=== PATIENT | male | born 1960 | race Caucasian/White ===

== ENCOUNTER 2018-08-12 16:40 | Inpatient (IN) | payer OTHER ==
[~2018-08-12] VITALS: Ht 167.6 cm; Wt 76.7 kg
[2018-08-12] MEDS ORDERED: ACETAMINOPHEN 325MG TABLET PO STA (17:39)
[2018-08-12] MEDS ORDERED: SODIUM CHLORIDE 0.9% 1000ML BAG (SEPSIS BOLUS) IV ONE (17:45)
[2018-08-12 18:18] LABS: BASOPHILS % 0.1 % (0.0-2.0); HEMATOCRIT. 34.2 % (42.0-52.0); HEMOGLOBIN. 11.5 g/dL (14.0-18.0); LYMPHOCYTES % 7.5 % (20.0-50.0); MEAN CORPUSCULAR VOLUME 86.5 fL (80.0-94.0); MEAN PLATELET VOLUME 9.3 fl (7.4-10.4); MONOCYTES % 3.9 % (2.0-8.0); NEUTROPHILS % 88.5 % (40.0-76.0); PLATELET 221 x1000/uL (130-400); RED BLOOD CELL COUNT 3.96 mill/uL (4.7-6.1); RED CELL DISTRIBUTION WIDTH 15.5 % (11.6-14.6)
[2018-08-12 18:24] LABS: CHLORIDE 101 mEq/L (98-107)
[2018-08-12 18:25] LABS: INR 1.1; PROTHROMBIN TIME 11.4 sec (9.1-11.1)
[2018-08-12 18:29] LABS: ETHANOL BLOOD < 10 mg/dL
[2018-08-12] MEDS ORDERED: ONDANSETRON HCL 4MG/2ML INJ IV ONE (18:30)
[2018-08-12 18:32] LABS: CLARITY URINE CLOUDY (CLEAR); COLOR URINE YELLOW (YELLOW); KETONES URINE NEGATIVE (NEGATIVE); LEUKOCYTE ESTERASE URINE NEGATIVE (NEGATIVE); NITRITE URINE NEGATIVE (NEGATIVE); OCCULT BLOOD URINE 2+ (NEGATIVE); PROTEIN URINE 4+ (NEGATIVE); UROBILINOGEN URINE 0.2 E.U./dL (0.2-1.0)
[2018-08-12] MEDS ORDERED: PIPERACILLIN/TAZ 3.375G PREMIX 50 ML IV ONE (19:00)
[2018-08-12] MEDS ORDERED: VANCOMYCIN 1 G PREMIX 200 ML IV SCH (19:00)
[2018-08-12 19:01] LABS: *BARBITURATES SCREEN URINE NEGATIVE (NEGATIVE); *BENZODIAZEPINES SCREEN URINE NEGATIVE (NEGATIVE); *COCAINE SCREEN URINE NEGATIVE (NEGATIVE)
[2018-08-12 19:02] LABS: *AMPHETAMINES SCREEN URINE NEGATIVE (NEGATIVE); CANNABINOID URINE SCREEN NEGATIVE (NEGATIVE); METHADONE URINE SCREEN NEGATIVE (NEGATIVE); OPIATES URINE SCREEN NEGATIVE (NEGATIVE); PHENCYCLIDINE URINE SCREEN NEGATIVE (NEGATIVE)
[2018-08-13] VITALS (8 sets, daily range): BP systolic 148–181; BP diastolic 78–111
[2018-08-13] MEDS ORDERED: SODIUM CHLORIDE 0.45% 1,000 ML IV SCH (00:02)
[2018-08-13] MEDS ORDERED: HYDROCODONE/ACETAMINOPHEN 5/325MG TABLET PO PRN (00:15)
[2018-08-13] MEDS ORDERED: DOCUSATE SODIUM 100MG CAPSULE PO PRN (00:15)
[2018-08-13] MEDS ORDERED: ONDANSETRON HCL 4MG/2ML INJ IV PRN (00:15)
[2018-08-13] MEDS: CEFTRIAXONE 1 G PREMIX 50 ML IV SCH (04:43)
[2018-08-13] MEDS: ASPIRIN 81MG EC TABLET PO SCH (08:14)
[2018-08-13] MEDS: AMLODIPINE 10MG TABLET PO SCH (08:15)
[2018-08-13] MEDS ORDERED: SODIUM CHLORIDE 0.45% 1,000 ML IV ONE (11:45)
[2018-08-13] MEDS ORDERED: PNEUMOCOCCAL 23-VAL P-SAC VAC 0.5 ML IM ONE (12:00)
[2018-08-13] MEDS ORDERED: INFLUENZA VIRUS VACCINE(AFLURIA) 0.5ML SYR IM ONE (12:00)
[2018-08-13] MEDS ORDERED: VANCOMYCIN 500 MG PREMIX 100 ML IV NR (13:00)
[2018-08-13] MEDS: ACETAMINOPHEN 325MG TABLET PO PRN ×2 (13:38→21:14)
[2018-08-13 15:48] LABS: CHLORIDE 105 mEq/L (98-107)
[2018-08-13 15:53] LABS: HEMATOCRIT. 27.1 % (42.0-52.0); HEMOGLOBIN. 9.1 g/dL (14.0-18.0); MEAN CORPUSCULAR HEMOGLOBIN 28.7 pg (28.0-32.0); MEAN CORPUSCULAR VOLUME 85.2 fL (80.0-94.0); MEAN PLATELET VOLUME 9.4 fl (7.4-10.4); PLATELET 153 x1000/uL (130-400); RED BLOOD CELL COUNT 3.18 mill/uL (4.7-6.1); RED CELL DISTRIBUTION WIDTH 15.5 % (11.6-14.6)
[2018-08-13 16:27] LABS: PLATELET ESTIMATE NORMAL
[2018-08-13] MEDS ORDERED: DEXTROSE 50% WATER 50ML SYRINGE IV PRN (19:30)
[2018-08-13] MEDS: CLONIDINE 0.1MG TABLET PO PRN (21:14)
[2018-08-13] MEDS: INSULIN LISPRO 100 UNITS/ML SUBCUT SCH (21:15)
[2018-08-13] MEDS: BLOOD SUGAR DIAGNOSTIC STRIP TEST SCH (21:16)
[2018-08-14] VITALS: BP 122/78
[2018-08-14] MEDS: CEFTRIAXONE 1 G PREMIX 50 ML IV SCH (01:40)
[2018-08-14 04:00] VITALS: BP 148/92
[2018-08-14] MEDS: CLONIDINE 0.1MG TABLET PO PRN (05:18)
[2018-08-14 06:21] LABS: BASOPHILS % 0.2 % (0.0-2.0); EOSINOPHILS % 0.6 % (0.0-5.0); HEMATOCRIT. 25.5 % (42.0-52.0); LYMPHOCYTES % 8.3 % (20.0-50.0); MEAN PLATELET VOLUME 9.2 fl (7.4-10.4); MONOCYTES % 6.5 % (2.0-8.0); NEUTROPHILS % 84.4 % (40.0-76.0); PLATELET 139 x1000/uL (130-400); RED CELL DISTRIBUTION WIDTH 15.6 % (11.6-14.6)
[2018-08-14 06:26] LABS: CHLORIDE 108 mEq/L (98-107)
[2018-08-14] MEDS: BLOOD SUGAR DIAGNOSTIC STRIP TEST SCH ×2 (06:41→13:10)
[2018-08-14] MEDS: INSULIN LISPRO 100 UNITS/ML SUBCUT SCH ×2 (07:50→13:10)
[2018-08-14 08:00] VITALS: BP 156/95
[2018-08-14] MEDS: AMLODIPINE 10MG TABLET PO SCH (08:19)
[2018-08-14] MEDS: ASPIRIN 81MG EC TABLET PO SCH (08:19)
[2018-08-14] MEDS ORDERED: VANCOMYCIN 1 G PREMIX 200 ML IV SCH (11:00)
[2018-08-14 12:00] VITALS: BP 146/96
[2018-08-14 14:02] VITALS: BP 148/96
== END 2018-08-14 16:36 | disposition home or self-care (01) | DRG 872 ==
LOC: ER 16:40 → 6WST 21:32 → EDBEDREQ 21:36 → ENRESERV 22:47
PROVIDERS: ADMIT Hospitalist; ATTEND Hospitalist
DX: A41.9 Sepsis, unspecified organism (principal); L03.116 Cellulitis of left lower limb; N17.9 Acute kidney failure, unspecified; I16.0 Hypertensive urgency; I10 Essential (primary) hypertension; E11.9 Type 2 diabetes mellitus without complications
CPT/HCPCS: 36415; 71045; 80053; 80202; 80305; 81003; 82962; 83036; 83605; 84443; 85025; 85610; 87040; 87086; 87804; 90686; 90732; 93971; 99285; G0482; J0696; J1815; J2405; J2543; J3370; J7030

== ENCOUNTER 2018-09-22 15:08 | Inpatient (IN) | payer OTHER ==
[~2018-09-22] VITALS: Ht 167.6 cm; Wt 81.6 kg
[2018-09-22] MEDS ORDERED: PIPERACILLIN/TAZ 3.375G PREMIX 50 ML IV ONE (19:15)
[2018-09-22] MEDS ORDERED: VANCOMYCIN 1 G PREMIX 200 ML IV ONE (19:15)
[2018-09-22 19:27] LABS: BASOPHILS % 1.4 % (0.0-2.0); EOSINOPHILS % 4.5 % (0.0-5.0); HEMATOCRIT. 29.9 % (42.0-52.0); LYMPHOCYTES % 17.7 % (20.0-50.0); MEAN CORPUSCULAR HEMOGLOBIN 27.7 pg (28.0-32.0); MEAN CORPUSCULAR VOLUME 83.1 fL (80.0-94.0); MEAN PLATELET VOLUME 8.1 fl (7.4-10.4); MONOCYTES % 9.2 % (2.0-8.0); NEUTROPHILS % 67.2 % (40.0-76.0); PLATELET 315 x1000/uL (130-400); RED CELL DISTRIBUTION WIDTH 15.1 % (11.6-14.6)
[2018-09-22 19:33] LABS: PROTHROMBIN TIME 10.2 sec (9.1-11.1)
[2018-09-22 19:34] LABS: CHLORIDE 107 mEq/L (98-107)
[2018-09-22] MEDS ORDERED: ACETAMINOPHEN WITH CODEINE 300/30MG TABLET PO ONE (20:00)
[2018-09-22] MEDS ORDERED: CLONIDINE 0.1MG TABLET PO ONE (20:00)
[2018-09-22] MEDS ORDERED: HYDRALAZINE 20MG/ML VIAL IV ONE (23:15)
[2018-09-23] VITALS (8 sets, daily range): BP systolic 140–180; BP diastolic 84–100
[2018-09-23] MEDS ORDERED: DOCUSATE SODIUM 100MG CAPSULE PO PRN (00:30)
[2018-09-23] MEDS ORDERED: PIPERACILLIN/TAZ 3.375G PREMIX 50 ML IV SCH (00:30)
[2018-09-23] MEDS ORDERED: DIPHENHYDRAMINE 50MG/ML VIAL IV PRN (00:30)
[2018-09-23] MEDS ORDERED: IPRATROPIUM/ALBUTEROL 0.5-3(2.5)MG/3ML NEB INH PRN (00:30)
[2018-09-23] MEDS ORDERED: LORAZEPAM 2MG/ML CPJ IV PRN (00:30)
[2018-09-23] MEDS ORDERED: NA PHOS,M-B/NA PHOS,DI-BA ENEMA 118ML PR PRN (00:30)
[2018-09-23] MEDS ORDERED: MAGNESIUM/ALUMINUM HYDROXIDE/SIMETHICONE 30ML UDC PO PRN (00:30)
[2018-09-23] MEDS ORDERED: GUAIFENESIN 200MG/10ML SUGAR FREE UDC PO PRN (00:30)
[2018-09-23] MEDS ORDERED: ACETAMINOPHEN 325MG TABLET PO PRN (00:30)
[2018-09-23] MEDS ORDERED: ONDANSETRON HCL 4MG/2ML INJ IV PRN (00:30)
[2018-09-23] MEDS ORDERED: HYDROCODONE/ACETAMINOPHEN 5/325MG TABLET PO PRN (00:30)
[2018-09-23] MEDS ORDERED: MORPHINE SULFATE 4 MG/ML CPJ (NOT FOR IM USE) IV PRN (00:30)
[2018-09-23] MEDS: CLONIDINE 0.1MG TABLET PO PRN ×2 (01:18→08:39)
[2018-09-23] MEDS ORDERED: DEXTROSE 50% WATER 50ML SYRINGE IV PRN (02:45)
[2018-09-23] MEDS: PIPERACILLIN/TAZ 2.25G PREMIX 50 ML IV SCH ×4 (06:15→23:25)
[2018-09-23] MEDS: BLOOD SUGAR DIAGNOSTIC STRIP TEST SCH ×4 (06:35→20:25)
[2018-09-23] MEDS: ENOXAPARIN 40MG/0.4ML SYR SUBCUT SCH (08:11)
[2018-09-23] MEDS: INSULIN LISPRO 100 UNITS/ML SUBCUT SCH ×4 (08:12→20:42)
[2018-09-23] MEDS ORDERED: CLONIDINE 0.3MG TABLET PO NR (13:00)
[2018-09-23] MEDS: CLONIDINE 0.3MG TABLET PO PRN (20:40)
[2018-09-23] MEDS ORDERED: VANCOMYCIN 1 G PREMIX 200 ML IV SCH (21:00)
[2018-09-24] VITALS: BP 111/74
[2018-09-24 04:00] VITALS: BP 112/64
[2018-09-24] MEDS: PIPERACILLIN/TAZ 2.25G PREMIX 50 ML IV SCH ×3 (05:59→17:29)
[2018-09-24] MEDS: BLOOD SUGAR DIAGNOSTIC STRIP TEST SCH ×4 (06:24→21:08)
[2018-09-24 07:22] LABS: CHLORIDE 105 mEq/L (98-107)
[2018-09-24 07:35] LABS: HDL CHOLESTEROL 49 mg/dL (40-59); LDL CHOLESTEROL 78 mg/dL (5-100)
[2018-09-24 08:00] VITALS: BP 191/115
[2018-09-24] MEDS: ENOXAPARIN 40MG/0.4ML SYR SUBCUT SCH (08:19)
[2018-09-24] MEDS: INSULIN LISPRO 100 UNITS/ML SUBCUT SCH ×4 (08:20→21:00)
[2018-09-24] MEDS: CLONIDINE 0.3MG TABLET PO PRN (08:56)
[2018-09-24] MEDS ORDERED: METF-815 PO (09:11)
[2018-09-24] MEDS ORDERED: HYDR12.529 MT (09:11)
[2018-09-24] MEDS ORDERED: GLIP5TAB12 PO (09:11)
[2018-09-24 11:37] VITALS: BP 137/78
[2018-09-24] MEDS: HYDRALAZINE HCL 50MG TABLET PO SCH ×2 (13:24→21:08)
[2018-09-24 16:00] VITALS: BP 181/103
[2018-09-24] MEDS: AMLODIPINE 10MG TABLET PO SCH (17:29)
[2018-09-24 20:00] VITALS: BP 163/88
[2018-09-25] VITALS: BP 163/93
[2018-09-25] MEDS: CLONIDINE 0.3MG TABLET PO PRN (00:45)
[2018-09-25] MEDS: PIPERACILLIN/TAZ 2.25G PREMIX 50 ML IV SCH ×3 (00:45→11:47)
[2018-09-25] MEDS: BLOOD SUGAR DIAGNOSTIC STRIP TEST SCH ×2 (07:00→11:54)
[2018-09-25] MEDS: HYDRALAZINE HCL 50MG TABLET PO SCH ×2 (07:01→14:00)
[2018-09-25 08:00] VITALS: BP_SYST 182; BP_SYST 96; BP_DIAS 104; BP_DIAS 49
[2018-09-25] MEDS: AMLODIPINE 10MG TABLET PO SCH (08:38)
[2018-09-25] MEDS: INSULIN LISPRO 100 UNITS/ML SUBCUT SCH ×2 (08:43→12:17)
[2018-09-25] MEDS ORDERED: ENOXAPARIN 30MG/0.3ML SYR SUBCUT SCH (09:00)
[2018-09-25 12:00] VITALS: BP 179/100
[2018-09-25 13:01] VITALS: BP 122/75
== END 2018-09-25 15:54 | disposition home or self-care (01) | DRG 623 ==
LOC: ER 17:49 → 6EST 19:54 → EDBEDREQ 19:59 → EDBEDREQTM 19:59 → ENRESERV 21:56
PROVIDERS: ADMIT Internal Medicine; ATTEND Internal Medicine
PROC: 0JBR0ZZ Excision of Left Foot Subcutaneous Tissue and Fascia, Open Approach (ICD-10-PCS; principal; 2018-09-23)
DX: E11.621 Type 2 diabetes mellitus with foot ulcer (principal); E46 Unspecified protein-calorie malnutrition; N17.0 Acute kidney failure with tubular necrosis; L97.529 Non-pressure chronic ulcer of other part of left foot with unspecified severity; I16.0 Hypertensive urgency; L97.519 Non-pressure chronic ulcer of other part of right foot with unspecified severity; D64.9 Anemia, unspecified; E11.42 Type 2 diabetes mellitus with diabetic polyneuropathy; N18.9 Chronic kidney disease, unspecified; I12.9 Hypertensive chronic kidney disease with stage 1 through stage 4 chronic kidney disease, or unspecified chronic kidney disease; Z79.899 Other long term (current) drug therapy; Z68.29 Body mass index [BMI] 29.0-29.9, adult; Z83.3 Family history of diabetes mellitus
CPT/HCPCS: 36415; 71045; 73630; 80061; 80202; 82962; 87070; 87075; 87077; 96365; 96367; 96375; 99285; J0360; J1650; J1815; J2543; J3370; J7040

== ENCOUNTER 2018-12-20 04:42 | Inpatient (IN) | payer OTHER, MEDICAID ==
[~2018-12-20] VITALS: Ht 167.6 cm; Wt 877.7 kg
[~2018-12-20 04:42] MED LIST: GLIP5TAB12 PO; HYDR12.529 MT; METF-815 PO
[2018-12-20 06:43] LABS: BASOPHILS % 1.4 % (0.0-2.0); EOSINOPHILS % 1.8 % (0.0-5.0); HEMATOCRIT. 33.3 % (42.0-52.0); HEMOGLOBIN. 10.9 g/dL (14.0-18.0); MEAN CORPUSCULAR HEMOGLOBIN 28.3 pg (28.0-32.0); MEAN CORPUSCULAR VOLUME 86.8 fL (80.0-94.0); MEAN PLATELET VOLUME 8.4 fl (7.4-10.4); MONOCYTES % 7.6 % (2.0-8.0); NEUTROPHILS % 79.2 % (40.0-76.0); PLATELET 226 x1000/uL (130-400); RED BLOOD CELL COUNT 3.84 mill/uL (4.7-6.1); RED CELL DISTRIBUTION WIDTH 17.8 % (11.6-14.6)
[2018-12-20 06:50] LABS: CLARITY URINE CLEAR (CLEAR); COLOR URINE YELLOW (YELLOW); KETONES URINE NEGATIVE (NEGATIVE); LEUKOCYTE ESTERASE URINE NEGATIVE (NEGATIVE); NITRITE URINE NEGATIVE (NEGATIVE); OCCULT BLOOD URINE 1+ (NEGATIVE); PH URINE 6.5 (4.5-8.0); PROTEIN URINE 4+ (NEGATIVE); SPECIFIC GRAVITY URINE 1.013 (1.005-1.030); UROBILINOGEN URINE 0.2 E.U./dL (0.2-1.0)
[2018-12-20 06:53] LABS: CHLORIDE 115 mEq/L (98-107)
[2018-12-20 06:56] LABS: PARTIAL THROMBOPLASTIN TIME 27.4 sec (23.4-31.0)
[2018-12-20 06:58] LABS: ETHANOL BLOOD < 10 mg/dL
[2018-12-20 07:03] LABS: BETA HYDROXYBUTYRATE 0.1 mMol/L (0.0-0.3)
[2018-12-20 07:08] LABS: *AMPHETAMINES SCREEN URINE NEGATIVE (NEGATIVE); *BARBITURATES SCREEN URINE NEGATIVE (NEGATIVE); *BENZODIAZEPINES SCREEN URINE NEGATIVE (NEGATIVE)
[2018-12-20 07:09] LABS: *COCAINE SCREEN URINE NEGATIVE (NEGATIVE); CANNABINOID URINE SCREEN NEGATIVE (NEGATIVE); METHADONE URINE SCREEN NEGATIVE (NEGATIVE); OPIATES URINE SCREEN NEGATIVE (NEGATIVE); PHENCYCLIDINE URINE SCREEN NEGATIVE (NEGATIVE)
[2018-12-20] MEDS ORDERED: ENALAPRIL 2.5MG/2ML VIAL 2ML IV ONE (07:15)
[2018-12-20] MEDS ORDERED: CEFTRIAXONE 1 G PREMIX 50 ML IV ONE (07:45)
[2018-12-20] MEDS ORDERED: DEXTROSE 50% WATER 50ML SYRINGE IV PRN ×2 (08:45→20:15)
[2018-12-20] MEDS ORDERED: NA PHOS,M-B/NA PHOS,DI-BA ENEMA 118ML PR PRN (08:45)
[2018-12-20] MEDS ORDERED: ACETAMINOPHEN 325MG TABLET PO PRN (08:45)
[2018-12-20] MEDS ORDERED: MAGNESIUM/ALUMINUM HYDROXIDE/SIMETHICONE 30ML UDC PO PRN (08:45)
[2018-12-20] MEDS ORDERED: IPRATROPIUM/ALBUTEROL 0.5-3(2.5)MG/3ML NEB INH PRN (08:45)
[2018-12-20] MEDS ORDERED: DOCUSATE SODIUM 100MG CAPSULE PO PRN (08:45)
[2018-12-20] MEDS ORDERED: ACETAMINOPHEN 650MG SUPP PR PRN (08:45)
[2018-12-20] MEDS ORDERED: ONDANSETRON HCL 4MG/2ML INJ IV PRN (08:45)
[2018-12-20] MEDS ORDERED: DIPHENHYDRAMINE 50MG/ML VIAL IV PRN (08:45)
[2018-12-20] MEDS ORDERED: ACETAMINOPHEN 650MG/20.3ML UDC GT PRN (08:45)
[2018-12-20] MEDS ORDERED: GUAIFENESIN 200MG/10ML SUGAR FREE UDC PO PRN (08:45)
[2018-12-20] MEDS ORDERED: LABETALOL 5MG/ML SYR 20 MG/4 ML SYRINGE IV ONE (09:45)
[2018-12-20] MEDS ORDERED: LABETALOL HCL 20MG/4ML CARPUJECT IV ONE (10:00)
[2018-12-20 10:16] LABS: T4 FREE 0.96 ng/dL (0.76-1.46)
[2018-12-20] MEDS: CLONIDINE 0.1MG TABLET PO PRN (15:00)
[2018-12-20] MEDS ORDERED: FURO40TA5 PO (16:18)
[2018-12-20] MEDS ORDERED: METO-539 PO (16:18)
[2018-12-20] MEDS ORDERED: DILT-26 PO (16:18)
[2018-12-20] MEDS ORDERED: HYDRALAZINE 20MG/ML VIAL IV NR (16:30)
[2018-12-20] MEDS ORDERED: DIPHENHYDRAMINE 50MG CAPSULE PO PRN (17:00)
[2018-12-20] MEDS ORDERED: METFORMIN HCL 500MG TABLET PO SCH (17:00)
[2018-12-20] MEDS: BLOOD SUGAR DIAGNOSTIC STRIP TEST SCH (17:31)
[2018-12-20] MEDS: INSULIN LISPRO 100 UNITS/ML SUBCUT SCH (17:38)
[2018-12-20] MEDS ORDERED: DILTIAZEM HCL 120MG CAPSULE CD 24HR PO NR (17:45)
[2018-12-20 18:17] LABS: CREATINE KINASE MB FRACTION 12.1 ng/mL (0.5-3.6)
[2018-12-20] MEDS: GLIPIZIDE 5MG TABLET PO SCH (19:09)
[2018-12-20] MEDS ORDERED: NITROGLYCERIN 50MG PREMIX 250ML IV ONE (19:45)
[2018-12-20] MEDS ORDERED: BLOOD SUGAR DIAGNOSTIC STRIP TEST SCH (21:00)
[2018-12-20] MEDS ORDERED: INSULIN LISPRO 100 UNITS/ML SUBCUT SCH (21:00)
[2018-12-20 23:56] LABS: CREATINE KINASE MB FRACTION 8.7 ng/mL (0.5-3.6)
[2018-12-21] VITALS (32 sets, daily range): BP systolic 99–184; BP diastolic 59–115
[2018-12-21 06:03] LABS: CHLORIDE 117 mEq/L (98-107)
[2018-12-21 06:08] LABS: BASOPHILS % 0.7 % (0.0-2.0); HEMATOCRIT. 25.6 % (42.0-52.0); HEMOGLOBIN. 8.6 g/dL (14.0-18.0); LYMPHOCYTES % 16.6 % (20.0-50.0); MEAN CORPUSCULAR HEMOGLOBIN 28.8 pg (28.0-32.0); MEAN CORPUSCULAR VOLUME 85.5 fL (80.0-94.0); MEAN PLATELET VOLUME 8.8 fl (7.4-10.4); MONOCYTES % 8.4 % (2.0-8.0); NEUTROPHILS % 70.3 % (40.0-76.0); PLATELET 185 x1000/uL (130-400); RED BLOOD CELL COUNT 2.99 mill/uL (4.7-6.1); RED CELL DISTRIBUTION WIDTH 17.9 % (11.6-14.6)
[2018-12-21 06:11] LABS: LDL CHOLESTEROL 64 mg/dL (5-100)
[2018-12-21 06:12] LABS: CREATINE KINASE 255 IU/L (39-308); HDL CHOLESTEROL 69 mg/dL (40-59)
[2018-12-21 06:16] LABS: CREATINE KINASE MB FRACTION 7.7 ng/mL (0.5-3.6)
[2018-12-21] MEDS: METOPROLOL TARTRATE 50MG TABLET PO SCH ×2 (09:00→16:20)
[2018-12-21] MEDS: DILTIAZEM HCL 120MG CAPSULE CD 24HR PO SCH ×2 (09:00→16:20)
[2018-12-21] MEDS: BLOOD SUGAR DIAGNOSTIC STRIP TEST SCH ×3 (13:00→21:11)
[2018-12-21] MEDS: INSULIN LISPRO 100 UNITS/ML SUBCUT SCH ×3 (13:20→21:00)
[2018-12-21] MEDS: SODIUM CHLORIDE 0.9% INJ 3ML FLUSH IVF SCH ×2 (14:00→21:11)
[2018-12-21] MEDS: NITROGLYCERIN 50MG PREMIX 250 ML IV PRN (14:27)
[2018-12-21 16:20] LABS: *AMPHETAMINES SCREEN URINE NEGATIVE (NEGATIVE); *BARBITURATES SCREEN URINE NEGATIVE (NEGATIVE); *BENZODIAZEPINES SCREEN URINE NEGATIVE (NEGATIVE); *COCAINE SCREEN URINE NEGATIVE (NEGATIVE); CANNABINOID URINE SCREEN NEGATIVE (NEGATIVE); METHADONE URINE SCREEN NEGATIVE (NEGATIVE); OPIATES URINE SCREEN NEGATIVE (NEGATIVE); PHENCYCLIDINE URINE SCREEN NEGATIVE (NEGATIVE)
[2018-12-21] MEDS: GLIPIZIDE 5MG TABLET PO SCH (16:28)
[2018-12-21] MEDS: HYDROCHLOROTHIAZIDE 12.5MG CAPSULE PO SCH (21:39)
[2018-12-21] MEDS: HYDRALAZINE HCL 50MG TABLET PO SCH (22:04)
[2018-12-22] VITALS (71 sets, daily range): BP systolic 98–209; BP diastolic 42–154
[2018-12-22] MEDS: CLONIDINE 0.1MG TABLET PO PRN ×2 (05:05→20:02)
[2018-12-22 05:48] LABS: BASOPHILS % 0.7 % (0.0-2.0); EOSINOPHILS % 3.9 % (0.0-5.0); HEMATOCRIT. 26.9 % (42.0-52.0); HEMOGLOBIN. 8.9 g/dL (14.0-18.0); LYMPHOCYTES % 18.5 % (20.0-50.0); MEAN CORPUSCULAR HEMOGLOBIN 28.8 pg (28.0-32.0); MEAN PLATELET VOLUME 9.2 fl (7.4-10.4); MONOCYTES % 9.3 % (2.0-8.0); NEUTROPHILS % 67.6 % (40.0-76.0); PLATELET 188 x1000/uL (130-400); RED BLOOD CELL COUNT 3.09 mill/uL (4.7-6.1); RED CELL DISTRIBUTION WIDTH 18.3 % (11.6-14.6)
[2018-12-22] MEDS: BLOOD SUGAR DIAGNOSTIC STRIP TEST SCH ×4 (06:48→21:11)
[2018-12-22] MEDS: SODIUM CHLORIDE 0.9% INJ 3ML FLUSH IVF SCH ×3 (06:48→21:11)
[2018-12-22] MEDS: INSULIN LISPRO 100 UNITS/ML SUBCUT SCH ×4 (06:49→21:20)
[2018-12-22] MEDS: HYDRALAZINE HCL 50MG TABLET PO SCH (06:51)
[2018-12-22 07:32] LABS: PHOSPHORUS 4.3 mg/dL (2.5-4.9)
[2018-12-22] MEDS: HYDROCHLOROTHIAZIDE 12.5MG CAPSULE PO SCH ×2 (08:16→21:11)
[2018-12-22] MEDS: DILTIAZEM HCL 120MG CAPSULE CD 24HR PO SCH (08:16)
[2018-12-22] MEDS: GLIPIZIDE 5MG TABLET PO SCH ×2 (08:16→17:52)
[2018-12-22] MEDS: NITROGLYCERIN 50MG PREMIX 250 ML IV PRN (08:55)
[2018-12-22] MEDS: METOPROLOL TARTRATE 50MG TABLET PO SCH (09:15)
[2018-12-22] MEDS: HYDRALAZINE HCL 100MG TABLET PO SCH ×3 (14:00→22:25)
[2018-12-22 16:38] LABS: VITAMIN B12 SERUM 972 pg/mL (211-911)
[2018-12-22] MEDS ORDERED: MINOXIDIL 2.5MG TABLET PO SCH (17:15)
[2018-12-22] MEDS: THIAMINE HCL 100MG TABLET PO SCH (17:52)
[2018-12-22] MEDS: MINOXIDIL 2.5MG TABLET PO SCH (23:41)
[2018-12-23] VITALS (25 sets, daily range): BP systolic 118–172; BP diastolic 73–107
[2018-12-23] MEDS: SODIUM CHLORIDE 0.9% INJ 3ML FLUSH IVF SCH ×2 (06:15→21:22)
[2018-12-23] MEDS: MINOXIDIL 2.5MG TABLET PO SCH (06:17)
[2018-12-23] MEDS: BLOOD SUGAR DIAGNOSTIC STRIP TEST SCH ×4 (06:18→21:00)
[2018-12-23] MEDS: HYDRALAZINE HCL 100MG TABLET PO SCH ×3 (06:18→21:22)
[2018-12-23] MEDS: INSULIN LISPRO 100 UNITS/ML SUBCUT SCH ×4 (08:20→21:38)
[2018-12-23] MEDS: GLIPIZIDE 5MG TABLET PO SCH ×2 (09:14→18:02)
[2018-12-23] MEDS: THIAMINE HCL 100MG TABLET PO SCH ×2 (09:14→18:02)
[2018-12-23] MEDS: HYDROCHLOROTHIAZIDE 12.5MG CAPSULE PO SCH ×2 (09:14→21:22)
[2018-12-23] MEDS: METOPROLOL TARTRATE 50MG TABLET PO SCH (09:15)
[2018-12-23] MEDS: CLONIDINE 0.1MG TABLET PO PRN (21:21)
[2018-12-24] VITALS: BP 166/90
[2018-12-24 04:00] VITALS: BP 162/89
[2018-12-24] MEDS: SODIUM CHLORIDE 0.9% INJ 3ML FLUSH IVF SCH ×2 (05:58→14:09)
[2018-12-24] MEDS: HYDRALAZINE HCL 100MG TABLET PO SCH ×2 (05:59→14:09)
[2018-12-24] MEDS: CLONIDINE 0.1MG TABLET PO PRN (05:59)
[2018-12-24] MEDS: INSULIN LISPRO 100 UNITS/ML SUBCUT SCH ×3 (06:02→18:28)
[2018-12-24] MEDS: BLOOD SUGAR DIAGNOSTIC STRIP TEST SCH ×3 (06:02→16:56)
[2018-12-24 08:00] VITALS: BP 104/69
[2018-12-24] MEDS: HYDROCHLOROTHIAZIDE 12.5MG CAPSULE PO SCH (08:52)
[2018-12-24] MEDS: GLIPIZIDE 5MG TABLET PO SCH ×2 (08:52→16:55)
[2018-12-24] MEDS: METOPROLOL TARTRATE 50MG TABLET PO SCH (08:53)
[2018-12-24] MEDS: THIAMINE HCL 100MG TABLET PO SCH ×2 (08:53→16:55)
[2018-12-24 14:18] LABS: HIV SCREEN 4G Non Reactive (Non Reactive)
[2018-12-24 15:29] LABS: BASOPHILS % 0.7 % (0.0-2.0); EOSINOPHILS % 3.6 % (0.0-5.0); HEMATOCRIT. 32.7 % (42.0-52.0); HEMOGLOBIN. 10.6 g/dL (14.0-18.0); LYMPHOCYTES % 15.2 % (20.0-50.0); MEAN CORPUSCULAR HEMOGLOBIN 28.6 pg (28.0-32.0); MEAN CORPUSCULAR VOLUME 87.9 fL (80.0-94.0); MEAN PLATELET VOLUME 9.3 fl (7.4-10.4); MONOCYTES % 7.7 % (2.0-8.0); NEUTROPHILS % 72.8 % (40.0-76.0); PLATELET 212 x1000/uL (130-400); RED BLOOD CELL COUNT 3.72 mill/uL (4.7-6.1); RED CELL DISTRIBUTION WIDTH 18.6 % (11.6-14.6)
[2018-12-24] MEDS ORDERED: FUROSEMIDE 40MG/4ML VIAL IVP SCH (16:00)
[2018-12-24] MEDS ORDERED: AMLO5TAB4 MT (17:12)
[2018-12-24] MEDS ORDERED: THIA100T72 PO (17:12)
[2018-12-24] MEDS ORDERED: METO-539 PO (17:12)
[2018-12-24] MEDS ORDERED: HYDR100T26 PO (17:12)
[2018-12-24] MEDS ORDERED: AMLODIPINE 5MG TABLET PO NR (17:15)
[2018-12-24 17:27] LABS: HEPATITIS B SURFACE ANTIGEN NEGATIVE
[2018-12-24 18:46] VITALS: BP 109/65
[2018-12-24 20:00] VITALS: BP 109/65
[2018-12-24] MEDS ORDERED: METOPROLOL TARTRATE 50MG TABLET PO SCH (21:00)
== END 2018-12-24 20:28 | disposition home or self-care (01) | DRG 872 ==
LOC: ER 04:42 → CANRESERV 19:46 → ENRESERV 19:46 → EDBEDREQSVC 20:06 → EDBEDREQTM 20:06 → ENRESERV 12-21 14:23 → CVICU 12-21 15:59 → 8WST 12-23 13:50
PROVIDERS: ADMIT Family Medicine; ATTEND Family Medicine
DX: A41.9 Sepsis, unspecified organism (principal); I16.1 Hypertensive emergency; N17.9 Acute kidney failure, unspecified; I31.3 Pericardial effusion (noninflammatory); J90 Pleural effusion, not elsewhere classified; F05 Delirium due to known physiological condition; N18.4 Chronic kidney disease, stage 4 (severe); I67.4 Hypertensive encephalopathy; E11.22 Type 2 diabetes mellitus with diabetic chronic kidney disease; I12.9 Hypertensive chronic kidney disease with stage 1 through stage 4 chronic kidney disease, or unspecified chronic kidney disease; D63.8 Anemia in other chronic diseases classified elsewhere; E11.40 Type 2 diabetes mellitus with diabetic neuropathy, unspecified; E78.5 Hyperlipidemia, unspecified; E11.51 Type 2 diabetes mellitus with diabetic peripheral angiopathy without gangrene; Z79.84 Long term (current) use of oral hypoglycemic drugs; Z79.899 Other long term (current) drug therapy
CPT/HCPCS: 36415; 70551; 71045; 76770; 80048; 80061; 80076; 80305; 82010; 82140; 82550; 82553; 82607; 82962; 83036; 83735; 83880; 84100; 84439; 84443; 84481; 84484; 85379; 86803; 87340; 87389; 93005; 93306; 93970; 96365; 97162; 99291; J0360; J0696; J1815; J1940; J3490; J7040